=== PATIENT | female | born 1965 | race Caucasian/White ===

== ENCOUNTER 2016-08-21 19:05 | Emergency (ER) | payer BC ==
[~2016-08-21] VITALS: Ht 160 cm; Wt 78.3 kg
[2016-08-21] MEDS ORDERED: ALBUTEROL/IPRATROPIUM 3MG-0.5MG/3ML (DUONEB) NEB VIAL INH ONE (19:35)
[2016-08-21] MEDS ORDERED: methylPREDNISolone 125 MG (Solu-MEDROL) VIAL IM ONE (19:35)
--- NOTE | 2016-08-21 20:09 | NUR ---
SOLUMEDROL WAS GIVEN IM SO NO START / STOP TIME FOR IV MED
[2016-08-21 20:20] LABS: BASOPHILS % (AUTO) 0 % (0-2); EOSINOPHILS # (AUTO) 0.3 10^3uL; EOSINOPHILS % (AUTO) 3 % (0-4); LYMPHOCYTES # (AUTO) 3.5 X10^3; MEAN CORPUSCULAR HEMOGLOBIN 27.1 PG (26.0-34.0); MEAN PLATELET VOLUME 9.9 FL (6.0-9.5); MONOCYTES # (AUTO) 0.7 X10^3; MONOCYTES % (AUTO) 6 % (3-11); NEUTROPHILS % (AUTO) 57 % (51-67); PLATELET COUNT 249 10^3uL (150-450); WHITE BLOOD COUNT 10.52 10^3uL (4.0-11.0)
[2016-08-21 20:23] LABS: ANION GAP 13.7 MEQ/L (3-15)
[2016-08-21 20:26] LABS: MEAN CORPUSCULAR VOLUME 78 FL (80-100)
--- NOTE | 2016-08-21 20:33 | NUR ---
O2 DECREASED TO 1L/MLNC AND SATS ARE HOLDING AT 94%
[2016-08-21 20:56] VITALS: BP 127/77
== END 2016-08-21 21:03 | disposition home or self-care (01) ==
LOC: ED 19:06
DX: J45.41 Moderate persistent asthma with (acute) exacerbation (principal)
CPT/HCPCS: 36415; 71010; 80048; 85025; 94640; 94664; 96372; 99283; J2930

== ENCOUNTER 2016-09-09 13:46 | Emergency (ER) | payer BC ==
[~2016-09-09] VITALS: Ht 160 cm; Wt 73.5 kg
[2016-09-09 13:59] VITALS: BP 131/71
[2016-09-09 14:36] LABS: MEAN CORPUSCULAR HGB CONC 34.9 g/dL (31.0-37.0); MEAN PLATELET VOLUME 9.8 FL (6.0-9.5); PLATELET COUNT 231 10^3uL (150-450); WHITE BLOOD COUNT 14.36 10^3uL (4.0-11.0)
[2016-09-09 14:37] LABS: MEAN CORPUSCULAR VOLUME 77 FL (80-100)
[2016-09-09 14:42] LABS: BILIRUBIN,URINE Negative (Negative); CLARITY,URINE Clear; COLOR,URINE Yellow; GLUCOSE, URINE (UA) 3+ (Negative); LEUKOCYTE ESTERASE ,URINE Negative (Negative); UROBILINOGEN,URINE 0.2 mg/dL (0.2-1.0)
[2016-09-09 14:44] LABS: URINE CENTRIFUGED VOLUME 12 mL
[2016-09-09 14:45] LABS: ALBUMIN 4.3 g/dL (3.4-5.0); ANION GAP 18.9 MEQ/L (3-15); CALCULATED IONIZED CALCIUM 4.3 mg/dL (3.8-4.6); TOTAL PROTEIN 7.3 g/dL (6.4-8.5)
[2016-09-09 14:48] LABS: RBC,URINE 0-2 /HPF
[2016-09-09] MEDS ORDERED: INSULIN REGULAR 1 UNIT/0.01 ML DOSE IV ONE (14:50)
[2016-09-09 14:53] LABS: BAND NEUTROPHILS % 1 % (0-6); EOSINOPHILS % 0 % (0-4); LYMPHOCYTES # 1.6 #; MICROCYTOSIS SLIGHT; MONOCYTES # 0.1 #; MONOCYTES % 1 % (3-11); RBC MORPH SEE REFERENCE (NORMAL); SEGMENTED NEUTROPHILS % 87 % (51-67); TOTAL CELLS COUNTED 100
--- NOTE | 2016-09-09 15:48 | NUR ---
up to bathroom without assist
--- NOTE | 2016-09-09 16:18 | NUR ---
er will get glucose lab results from blood draw
[2016-09-09] MEDS ORDERED: ONDANSETRON 2 MG/ML (Z0FRAN) 2 ML VIAL IV ONE (17:15)
--- NOTE | 2016-09-09 18:30 | NUR ---
pt to go home and take blood sugar and call back to physician, blood glucose monitor not working in er
== END 2016-09-09 18:30 | disposition home or self-care (01) ==
LOC: EDUNIT# 13:46 → ED 13:50
DX: K52.9 Noninfective gastroenteritis and colitis, unspecified (principal); E11.65 Type 2 diabetes mellitus with hyperglycemia; Z79.84 Long term (current) use of oral hypoglycemic drugs
CPT/HCPCS: 36415; 74177; 80053; 81003; 81015; 83690; 85025; 96361; 96374; 99283; J1815; J2405; J7030; Q9967

== ENCOUNTER → 2016-09-11 | Outpatient (CLI) | payer BC ==
[~2016-09-11] MED LIST: ADV500-14 IH; ALBU8.5H2 IH; ALBU8.5H2 INH; ATOR20TA PO; AZIT250T PO; AZIT250T5 PO; AZIT250T81 PO; AZIT500T4 PO; BUDE10.2 IH; BUDE10.2 INH; BUDE6HFA INH; CPR500T PO; DOXY-182 PO; DOXY100C2 PO; DUONEB 0.5 MG-33 ML INH; FERR-74 PO; FLUT16SP NSEACH; FLUT1DIS4 IH; GUAI100G2 PO; GUAI120013 PO; GUAI400T58 PO; HYDR-3702 PO; HYDR-3811 PO; IPRA0.2S50 IH; LEVO750T39 PO; LORA10CA PO; METF500T4 PO; METH4TAB27 PO; MONT10TA21 PO; OMEP40CA3 PO; ONDA4TAB8 PO; PRCD5U PO; PRD20T PO; PRED10TA22 PO; PRED20TA PO; PRM25T PO; ROPI0.5T4 PO; RPN.25T GT; SULF-228 PO; TRIA80OI2 TOP; TRM50T PO; ZOLP10TA PO
--- NOTE | 2016-09-11 10:28 | Diagnostic Imaging Report ---
EXAMINATION: PA and lateral views of the chest are obtained. Comparison is made to study of 08/21/2016. Overall heart size is within normal limits. There is focal increased density in the left suprahilar region. This is somewhat linear in morphology and may represent area of atelectasis or infiltrate. There is no evidence of pneumothorax. No other site of consolidation is identified. There is no significant pleural fluid. IMPRESSION: Somewhat linear area of increased density in the left suprahilar region may be related to atelectasis or focal infiltrate. Clinical correlation is recommended. Short-term followup study could be performed to document resolution. If this finding persists, CT imaging or bronchoscopy should be considered. Dictated by: Dictated on workstation # [id number]
== END ==
LOC: RAD 08:58
PROVIDERS: ATTEND Nurse Practitioner Family
DX: R06.02 Shortness of breath (principal)
CPT/HCPCS: 71020

== ENCOUNTER → 2016-09-11 | Outpatient (REF) | payer BC | LOC: LAB 08:53 | PROVIDERS: ATTEND Nurse Practitioner Family | DX: E11.9 Type 2 diabetes mellitus without complications (principal) | CPT/HCPCS: 80061; 82043; 83036 ==

== ENCOUNTER → 2016-09-13 | Outpatient (CLI) | payer BC ==
--- NOTE | 2016-09-16 20:30 | Diagnostic Imaging Report ---
INDICATION: Nausea and vomiting EXAMINATION: Gastric emptying timed 09/13/2016 FINDINGS: A meal of 2 eggs containing 1 mCi of technetium 99m sulfur colloid was prepared and given to the patient. Subsequent imaging was performed. T 1/2 is 76 minutes. IMPRESSION: 1. T 1/2 of 76 minutes. Dictated on workstation # [id number]
== END ==
LOC: RAD 08:27
PROVIDERS: ATTEND Nurse Practitioner Family
DX: R11.2 Nausea with vomiting, unspecified (principal)
CPT/HCPCS: 78264; A9541

== ENCOUNTER → 2016-10-01 | Outpatient (REF) | payer BC | LOC: LAB 09:47 | PROVIDERS: ATTEND Nurse Practitioner Family | DX: J02.9 Acute pharyngitis, unspecified (principal) | CPT/HCPCS: 87651 ==

== ENCOUNTER → 2016-10-01 | Outpatient (CLI) | payer BC ==
--- NOTE | 2016-10-01 12:23 | Diagnostic Imaging Report ---
INDICATION: Followup of the density noted left lung on 09/11/2016. FINDINGS: PA and lateral views show the lungs to be well-aerated. The increased density in the left upper perihilar region is again noted with little change. This is noted on the PA view only. The heart is not enlarged. There is no pneumothorax or pleural effusion. IMPRESSION: Persistent perihilar density left lung. As this is persistent, we would consider CT scan of the chest. Dictated by: Dictated on workstation # [id number]
== END ==
LOC: RAD 09:42
PROVIDERS: ATTEND Nurse Practitioner Family
DX: R93.8 Abnormal findings on diagnostic imaging of other specified body structures (principal); J98.4 Other disorders of lung
CPT/HCPCS: 71020

== ENCOUNTER → 2016-10-07 | Outpatient (CLI) | payer BC ==
--- NOTE | 2016-10-07 09:05 | Diagnostic Imaging Report ---
PROCEDURE: CT chest with contrast only. TECHNIQUE: Multiple contiguous axial images were obtained through the chest after administration of intravenous contrast. INDICATION: Followup nodular density within the left upper lobe on recent chest x-ray. COMPARISON: Chest x-ray 10/01/[address] 02/15/2016. DISCUSSION: No focal consolidation or suspicious pulmonary nodule identified. Density on x-ray likely represents the left first rib end. Small fat-containing right Bochdalek hernia is stable. Normal heart size. No pleural or pericardial fluid. No mediastinal, hilar, or axillary adenopathy. The pulmonary arteries are not distended. The thoracic aorta is normal in caliber and configuration. The visualized upper abdomen is unremarkable other than mild hepatomegaly. No osseous abnormality identified. IMPRESSION: 1. No acute abnormality identified. Density on chest x-ray likely represents the left first rib end. Dictated by: Dictated on workstation # [id number]
== END ==
LOC: RAD 07:31
PROVIDERS: ATTEND Nurse Practitioner Family
DX: R93.8 Abnormal findings on diagnostic imaging of other specified body structures (principal)
CPT/HCPCS: 71260; Q9967